=== PATIENT | male | born 1970 ===

== ENCOUNTER 2020-07-11 01:44 | Emergency (ER) | payer SELFPAY ==
[~2020-07-11] VITALS: Ht 188 cm; Wt 102.0 kg
[2020-07-11 01:51] VITALS: BP 139/85
--- NOTE | 2020-07-11 02:38 | NUR ---
ALLA VASQUEZ, CODE 250 IN LOBBY BATHROOM. PT STATES "MY LEGS ARE HAVING SEIZURES". PT UNCOOPERATIVE WITH STAFF AND INTERVENTIONS BUT STATES HE WANTS HELP. PT RESTING IN GURNEY, LEGS ARE STILL, NO SHAKING NOTED DURING ASSESSMENT. PT IS SHORT TEMPERED WITH RN. PLACED ON APPLICATION SOFTWARE DEVELOPER.
--- NOTE | 2020-07-11 02:50 | NUR ---
ERP at bedside.
--- NOTE | 2020-07-11 03:37 | NUR ---
PT SAT AT EDGE OF BED AND URINATED ONTO FLOOR. PT HAS DC ORDERS IN AND STATES HE CANNOT WALK, PT IN ROOM YELLING. SECURITY CALLED. PT ABLE TO STAND AND PIVOT TO SIT IN WHEELCHAIR WITH STEADY GAIT. PT WHEELED OUT BY SECURITY. GIVEN DC INSTRUCTIONS.
== END 2020-07-11 04:02 | disposition home or self-care (01) ==
LOC: ED 02:44
DX: F15.10 Other stimulant abuse, uncomplicated (principal); M79.605 Pain in left leg; F17.200 Nicotine dependence, unspecified, uncomplicated
CPT/HCPCS: 99283